=== PATIENT | female | born 1980 | race Caucasian/White ===

== ENCOUNTER → 2018-01-14 | Outpatient (CLI) | payer OTHER ==
[~2018-01-14] MED LIST: DIPH50CA26 PO; VITAMIN B12 PO
== END | disposition home or self-care (01) ==
LOC: STAR 08:16
PROVIDERS: ATTEND Obstetrics & Gynecology Female Pelvic Medicine and Reconstructive Surgery
DX: Z02.9 Encounter for administrative examinations, unspecified (principal)

== ENCOUNTER 2018-01-20 11:45 | Day surgery (SDC) | payer OTHER ==
[2018-01-14 08:36] VITALS: BP 125/96
[~2018-01-20] VITALS: Ht 165.1 cm; Wt 78.3 kg
[~2018-01-20 11:45] MED LIST changes: +BUPIVACAINE/PF-EPI 0.25% 1:200K ONE; +NEOMY/POLYMYXIN B GU IRR. 1 ML IRRIG ONE
[2018-01-20 12:13] VITALS: BP 125/96
[2018-01-20] MEDS ORDERED: LACTATED RINGERS 1,000 ML IV SCH (12:18)
[2018-01-20 12:26] LABS: HCG UR SG 1.019 (1.003-1.030)
[2018-01-20] MEDS ORDERED: MIDAZOLAM 1 MG/ML, 2ML ONE (13:41)
[2018-01-20] MEDS ORDERED: FENTANYL PF 100 MCG/2ML ONE ×2 (13:41→15:32)
[2018-01-20] MEDS ORDERED: DEXAMETHASONE 4 MG/ML, 1ML ONE (13:42)
[2018-01-20] MEDS ORDERED: ONDANSETRON 2MG/ML, 2ML ONE (13:42)
[2018-01-20] MEDS ORDERED: METOCLOPRAMIDE 5 MG/ML, 2ML ONE (13:42)
[2018-01-20] MEDS ORDERED: ROCURONIUM 10MG/ML,5ML ONE ×2 (13:43)
[2018-01-20] MEDS ORDERED: ONDANSETRON 2MG/ML, 2ML IVPush PRN (14:30)
[2018-01-20] MEDS ORDERED: LABETALOL 5MG/ML, 20ML IV PRN (14:30)
[2018-01-20] MEDS ORDERED: MEPERIDINE/PF 25MG/0.5ML IVPush PRN (14:30)
[2018-01-20] MEDS ORDERED: OXYcodone 5 MG/5 ML ORAL.SOL UDC PO PRN (14:30)
[2018-01-20] MEDS ORDERED: MIDAZOLAM 1 MG/ML, 2ML IV PRN (14:30)
[2018-01-20] MEDS ORDERED: GLYCOPYRROLATE 0.2MG/1ML, 5ML ONE (15:04)
[2018-01-20] MEDS ORDERED: NEOSTIGMINE 1 MG/ML, 10ML ONE (15:04)
[2018-01-20] MEDS ORDERED: OXYcodone 5 MG/5 ML ORAL.SOL UDC ONE (15:32)
[2018-01-20] MEDS: FENTANYL PF 100 MCG/2ML IV PRN ×2 (15:32→15:39)
[2018-01-20] MEDS ORDERED: HYDROmorphone 2 MG/ML, 1ML ONE (16:00)
[2018-01-20] MEDS: HYDROmorphone 1 MG/ML, 1ML IV PRN ×2 (16:03→16:15)
[2018-01-20] MEDS ORDERED: PROPOFOL 10 MG/ML, 20ML ONE (16:05)
[2018-01-20] MEDS ORDERED: KETOROLAC 30 MG/1 ML ONE (16:53)
[2018-01-20] MEDS ORDERED: morphine SULFATE 10 MG/ML, 1ML ONE (16:53)
[2018-01-20] MEDS ORDERED: KETOROLAC 30 MG/1 ML IVPush ONE (17:00)
[2018-01-20] MEDS ORDERED: MORPHINE SULFATE 4 MG/ML, 1ML IVPush ONE (17:00)
== END 2018-01-20 18:10 | disposition home or self-care (01) ==
LOC: OUT 11:45
PROVIDERS: ATTEND Obstetrics & Gynecology Female Pelvic Medicine and Reconstructive Surgery
DX: N92.1 Excessive and frequent menstruation with irregular cycle (principal); N94.6 Dysmenorrhea, unspecified; N81.89 Other female genital prolapse; N94.10 Unspecified dyspareunia; N39.3 Stress incontinence (female) (male); N80.2 Endometriosis of fallopian tube; I10 Essential (primary) hypertension; Z90.49 Acquired absence of other specified parts of digestive tract; Z98.51 Tubal ligation status; Z72.89 Other problems related to lifestyle; Z87.891 Personal history of nicotine dependence
CPT/HCPCS: 57265; 57282; 57288; 58552; 81025; 88307; C1771; J1100; J1170; J1885; J2250; J2405; J2704; J2710; J2765; J3010; J3490; J7120